=== PATIENT | male | born 1985 | race Caucasian/White ===

== ENCOUNTER 2020-01-12 16:08 | Emergency (ER) | payer SELFPAY ==
[2020-01-12 16:35] VITALS: BP 144/73
[2020-01-12] MEDS ORDERED: TETRACAINE HCL 0.5% OPH SOLN 4 ML OS ONE (16:38)
--- NOTE | 2020-01-12 16:39 | ER Document Report ---
HPI - HPI Time Seen by Provider: 01/12/20 16:36 Onset: Other - This is a 34-year-old male presented to the emergency room today stating that he feels that he may have gotten something in his eye when his phone screen broke last night. Pain Level: 2 - REPRODUCTIVE Reproductive: DENIES: : Past Medical History - General Information source: Patient - Social History Smoking Status: Never Smoker Chew tobacco use (# tins/day): No Frequency of alcohol use: Heavy Drug Abuse: None Family History: None Patient has suicidal ideation: No Patient has homicidal ideation: No Vertical Provider Document - CONSTITUTIONAL Agree With Documented VS: Yes - INFECTION CONTROL TRAVEL OUTSIDE OF THE [place] IN LAST 30 DAYS: No - HEENT HEENT: Atraumatic, Conjuctival Injection, Normocephalic, PERRLA Course - Vital Signs Vital signs: Temp Pulse Resp BP Pulse Ox 99.2 F 58 L 16 144/73 H 98 01/12/20 16:33 01/12/20 16:33 01/12/20 16:33 01/12/20 16:33 01/12/20 16:33 Procedures - Eye Procedure Left Eye Irrigated w/ Saline (ccs): 10 Foreign body removal: Left Alcaine Drops Administered: Yes Fluorescein applied: Left Notes: 01/12/20 17:35 Patient abrasion to the left eye at 730 using a fluorescein strip Ophthetic and May lamp. Discharge - Discharge Clinical Impression: Corneal abrasion Qualifiers: Encounter type: initial encounter Laterality: left Qualified Code(s): S05.02XA - Injury of conjunctiva and corneal abrasion without foreign body, left eye, initial encounter Disposition: HOME, SELF-CARE Instructions: Corneal Abrasion ([facility]) Prescriptions: Erythromycin Base [Erythromycin Oph 1 Gm Oint Ud] 1 applic OS 5XD #1 tube
== END 2020-01-12 17:46 | disposition home or self-care (01) ==
LOC: ER 16:08
DX: S05.02XA Injury of conjunctiva and corneal abrasion without foreign body, left eye, initial encounter (principal); X58.XXXA Exposure to other specified factors, initial encounter
CPT/HCPCS: 99283; J3490